=== PATIENT | female | born 1975 | race Caucasian/White ===

== ENCOUNTER 2025-07-05 17:09 | Emergency (ER) | payer MEDICAID, SELFPAY ==
--- NOTE | 2025-07-05 17:49 | PC.NURSE ---
CALLED PT BACK, NO ANSWER AT THIS TIME
[2025-07-05 17:50] VITALS: BP 146/99; PULSE 108; RESP 19; TEMP 37; O2SAT 97
[2025-07-05 17:59] VITALS: BMI 32.4
--- NOTE | 2025-07-05 18:08 | PD.EDRME ---
Rapid Medical Screening Exam E Arrival date/time: 07/05/25 17:09 This is a 50-year-old female that comes into the emergency room with complaints of rectal bleeding. Patient was at the clinic and was told that she had a prolapsed right rectum. Patient states she is in a lot of pain in her rectal area. Patient states she has been bleeding on and off for couple weeks now. Patient states this has happened to her before and it typically resolves on its own. I have greeted and performed a focused initial assessment of this patient. Initial appropriate labs ordered at this time. A comprehensive ED assessment and evaluation of the patient and analysis of all test and completion of medical decision making process will be conducted by additional ED provider. Chief Complaint: General Adult/Misc Complain Time Seen by Provider: 07/05/25 17:46 Vital signs: Vital Signs Temperature 98.6 F 07/05/25 17:50 Pulse Rate 108 H 07/05/25 17:50 Respiratory Rate 19 07/05/25 17:50 Blood Pressure 146/99 H 07/05/25 17:50 Pulse Oximetry (%) 97 07/05/25 17:50 Oxygen Delivery Method Room Air 07/05/25 17:50 Exam: Alert and oriented, breathing even and unlabored, skin warm and dry. Clinical Impression: Rectal bleeding
[2025-07-05 18:36] LABS: Basophils # (Auto) 0.1 Thou/mm3 (0.0-0.2); Basophils % (Auto) 1 % (0-2.5); Eosinophils # (Auto) 0.8 Thou/mm3 (0.0-0.5); Eosinophils % (Auto) 6 % (0-10); Hematocrit 44.1 % (36.0-46.0); Hemoglobin 14.9 g/dL (12.0-16.0); Immature Granulocytes Auto 0.05 Thou/mm3 (0.00-0.00); Lymphocytes # (Auto) 2.8 Thou/mm3 (1.0-4.8); Lymphocytes % (Auto) 20 % (10-50); Mean Corpuscular HGB Conc 33.8 g/dl (31.0-37.0); Mean Corpuscular Hemoglobin 31.1 pg (25.0-35.0); Mean Corpuscular Volume 92 fL (80-100); Monocytes # (Auto) 1.2 Thou/mm3 (0.0-0.8); Monocytes % (Auto) 9 % (0-12); Neutrophils # (Auto) 8.9 Thou/mm3 (1.8-7.7); Neutrophils % (Auto) 64 % (37-80); Nucleated Red Blood Cell # 0.00 Thou/mm3 (0.00-0.00); Nucleated Red Blood Cell % 0 /100 WBC (0); Platelet Count 393 Thou/mm3 (140-440); RDW Standard Deviation 45.2 fL (36.4-46.3); Red Blood Count 4.79 Miln/mm3 (4.00-5.20); White Blood Count 13.8 Thou/mm3 (3.6-11.0)
[2025-07-05 18:42] LABS: Collection Type, Urine Voided
[2025-07-05 18:53] LABS: INR 1.0 (0.9-1.3); Prothrombin Time 10.2 Seconds (9.0-12.2)
[2025-07-05 18:54] LABS: Amorphous Crystals,Urine Present (Absent); Bacteria,Urine 1+; Bilirubin,Urine Negative (Negative); Blood,Urine Negative (Negative); Clarity,Urine Clear (Clear/Hazy); Color,Urine Yellow (Lt Yel-Yel); Glucose, Urine Negative (Negative); Hyaline Casts,Urine < 1 /hpf (0-1); Ketones,Urine Negative (Negative); Leukocyte Esterase,Urine Negative (Negative); Nitrite,Urine Negative (Negative); PH,Urine 5.5 (5.0-7.0); Protein,Urine Trace (Neg - Trace); RBC,Urine 6 /hpf (0-3); Specific Gravity,Urine 1.027 (1.001-1.035); Squamous Epithelial Cell,Urine 5 /hpf (0-5); Urobilinogen,Urine Negative mg/dL (0.0-1.0); WBC,Urine 5 /hpf (0-5)
[2025-07-05 18:55] LABS: Culture Indicated,Urine Yes
[2025-07-05 18:56] LABS: Alanine Aminotransferase 28 U/L (10-49); Albumin, Serum 4.6 gm/dL (3.5-5.0); Albumin/Globulin Ratio 2.0 (1.2-2.2); Alkaline Phosphatase 79 U/L (46-116); Anion Gap 9 (7-16); Aspartate Amino Transferase 22 U/L (0-34); BUN/Creatinine Ratio 11 Ratio (12-20); Bilirubin,Total 0.3 mg/dL (0.3-1.2); Blood Urea Nitrogen 11 mg/dL (9-23); Calcium 10.3 mg/dL (8.3-10.6); Calcium (Corrected) 10.3 mg/dL (8.5-10.1); Carbon Dioxide 25.8 mMol/L (20.0-31.0); Chloride 106 mMol/L (98-107); Creatinine (Component) 1.0 mg/dL (0.6-1.3); Estimated Creatinine Clearance 74.8 mL/min (>60); Globulin 2.3 gm/dL (2.3-3.5); Glucose 103 mg/dL (74-106); Osmolality,Calculated 280 (275-295); Potassium 4.3 mMol/L (3.4-5.1); Sodium 141 mMol/L (136-145); Total Protein 6.9 gm/dL (5.7-8.2); eGFR > 60 See Note
--- NOTE | 2025-07-05 20:17 | EDNOTE_ITS ---
ED General RME/HPI General Chief complaint: General Adult/Misc Complain Stated complaint: RECTAL PAIN/PROLAPSE Time Seen by Provider: 07/05/25 17:46 Arrival date/time: 07/05/25 17:09 CC: Rectal pain HPI ongoing intermittent for years worse in the last week, patient denies fever chills or bloody diarrhea. Localized pain is 0 when laying still, 4-5 when in motion. Patient was referred here by PCP after being informed that it was a prolapsed rectum. RME / HPI RME / HPI narrative: 07/05/25 17:09 This is a 50-year-old female that comes into the emergency room with complaints of rectal bleeding. Patient was at the clinic and was told that she had a prolapsed right rectum. Patient states she is in a lot of pain in her rectal area. Patient states she has been bleeding on and off for couple weeks now. Patient states this has happened to her before and it typically resolves on its own. I have greeted and performed a focused initial assessment of this patient. Initial appropriate labs ordered at this time. A comprehensive ED assessment and evaluation of the patient and analysis of all test and completion of medical decision making process will be conducted by additional ED provider. Exam: Alert and oriented, breathing even and unlabored, skin warm and dry. Impression: Rectal bleeding Related Data Previous Rx's ?Medication ?Instructions ?Recorded hydrocortisone acetate 25 mg 25 mg TN QDAY #12 ea 05/21 rectal suppository (Anusol-HC) Allergies Allergy/AdvReac Type Severity Reaction Status Date / Time No Known Allergies Allergy Verified 07/05/25 17:13 Review of Systems Review of Systems Narrative Review of Systems: GEN: No fever, no chills, no weight loss EYES: No discharge, no visual changes, no pain HEENT: No ear pain, no congestion, no sore throat PULM: No shortness of breath, no cough, no congestion CV: No chest pain, no dyspnea on exertion, no palpitations GI: No nausea, no vomiting, no diarrhea, + rectal pain, no constipation : No frequency, no urgency, no dysuria MUSC/SKEL: No joint pain, no back pain SKIN: No rash PSYCH: No hallucinations, no depression HEME/LYMPH: No easy bleeding or bruising tendencies NEURO: No weakness, no headache Past Medical History Past Medical History CARDIAC: Positive Cardiac Disorders and Hypercholesterolemia; Negative Congestive Heart Failure RESPIRATORY: Negative Chronic Obstructive Pulmonary Disease (COPD) GENITOURINARY: Negative Renal Disease ENDOCRINE: Negative Diabetes Mellitus Type 1 or Diabetes Mellitus Type 2 Social History SMOKING STATUS: Current every day smoker ED Exam Narrative Physical exam: [General: Obese not in mild discomfort but not in any acute distress Head normocephalic HEENT: Within acceptable limits Neck is supple nontender Chest equal chest rise nontender to palpation Respiratory: Clear to auscultation no wheezes crackles or rubs CV: Rate rhythm is regular no murmurs rubs or clicks Abdomen is distended secondary to body habitus soft nontender no masses positive bowel sounds all 4 quadrants GI: Rectum: Patient has a olive sized hemorrhoid at the 9 o'clock position 2 smaller hemorrhoids that appear old in nature at the 6 o'clock position. Good rectal tone, no fissures, no active bleeding. Back: No CVA tenderness no spinous process tenderness from cervical spine thoracic and lumbar spine Skin: Intact no petechiae rash induration ulceration or crepitus Extremities: Moving all extremity against resistance cap refill less than 2 seconds neurosensory intact Neuro: Awake alert oriented x3 Glascow coma 15 no focal deficits] Course Quality Measures none Orders Category Date Time Status CBC Stat Lab 07/05/25 18:25 Completed Comprehensive Metabolic Panel Stat Lab 07/05/25 18:25 Completed PT [Prothrombin Time with INR] Stat Lab 07/05/25 18:25 Completed Urinalysis, C/S if Indicated Stat Lab 07/05/25 18:28 Completed Urine Culture Stat Lab 07/05/25 18:28 Received Vital Signs Vital signs: Vital Signs Temperature 98.6 F 07/05/25 17:50 Pulse Rate 108 H 07/05/25 17:50 Respiratory Rate 19 07/05/25 17:50 Blood Pressure 146/99 H 07/05/25 17:50 Pulse Oximetry (%) 97 07/05/25 17:50 Oxygen Delivery Method Room Air 07/05/25 17:50 Discharge Plan Plan Patient Disposition: HOME (Self Care) Patient condition on transfer: Stable Prescriptions/Referrals Prescriptions/Med Rec: New hydrocortisone acetate [Anusol-HC] 25 mg suppository 25 mg TN QDAY Qty: 12 0RF Referrals: Jonathon Fry MD [Primary Care Provider, Family Practice] - In 1 week Sofi Kang MD [Physician, General Surgery] - In 1 week Problem List Clinical Impression: Hemorrhoids Patient/Caregiver Discharge Instructions Other Activity Instructions:: Use sitz bath's with Epsom salts twice a day for the next 2 to 3 weeks follow-up with the surgeon listed above. Use the Anusol as prescribed. If there is worsening of symptoms including heavy bleeding or fever return the emergency room for reevaluation. Education Materials: Treating Hemorrhoids: Self-Care, Understanding Hemorrhoids Print Language: Green[place]ic Stand Alone Forms: Suellen Award Info., Patient Portal Info Letter, Work/School Release PA/LAWN CARE PROFESSIONAL Supervising Physician PA/LAWN CARE PROFESSIONAL Supervising Physician: Aubrey Calderon ENP [facility] Clinical Information Provided by: patient Medical Records reviewed [facility] Meds/Rx considered, not ordered None Labs/Rad/Tests considered, not ordered None Chronic Illness/Social Conditions which may negatively complicate care or outcome(s)-explain: None or not applicable EKG EKG not done Labs Labs: interpreted by [facility] Lab(s) Interpretation(s): CBC shows mild leukocytosis of 13.0 no anemia thrombocytopenia PT/INR all within acceptable limits CMP shows no significant electrolyte imbalances renal impairment transaminitis or T. bili elevation Urine is negative for UTI 1+ bacteria and amorphous crystals leukocyte and nitrite negative.
[2025-07-05 20:35] VITALS: BP 145/92; PULSE 71; RESP 18; TEMP 36.8; O2SAT 97
== END 2025-07-05 20:35 | disposition home or self-care (01) ==
PROVIDERS: Nurse Practitioner Family; Emergency Provider Emergency Medicine; PCP Family Medicine
DX: K64.9 Unspecified hemorrhoids (principal)
CPT/HCPCS: 36415; 80053; 81001; 85025; 85610; 87086; 99282